=== PATIENT | female | born 1990 | race Caucasian/White ===

== ENCOUNTER 2017-03-24 07:34 | Emergency (ER) | payer MEDICAID, OTHER ==
[~2017-03-24] VITALS: Ht 170.2 cm; Wt 58.1 kg
[~2017-03-24 07:34] MED LIST: ALPR1TAB2 PO; CITA-73 PO; INSLANTI SC
[2017-03-24] MEDS ORDERED: SODIUM CHLORIDE 0.9% 1,000 ML IV ONE ×2 (08:07→08:15)
[2017-03-24] MEDS ORDERED: SODIUM CHLORIDE 0.9% 250 ML IV ONE (08:07)
[2017-03-24] MEDS ORDERED: KETOROLAC TROMETH 30 MG/ML 1ML VIAL IV ONE (08:15)
[2017-03-24] MEDS ORDERED: ONDANSETRON HCL 4 MG/2 ML VIAL IV ONE (08:15)
[2017-03-24 08:17] LABS: Basophils # (auto) 0 uL; Basophils % (auto) 0.4 % (0.0-2.0); Eosinophils # (auto) 0.2 uL; Eosinophils % (auto) 2.3 % (0.0-7.0); Hematocrit 43.4 % (36.0-46.0); Hemoglobin 14.8 g/dL (12.2-16.2); Lymphocytes # (auto) 3.3 uL; Lymphocytes % (auto) 31.1 % (10.0-50.0); Mean Corpuscular Hemoglobin 31.2 pg (28.0-32.0); Mean Corpuscular Hgb Conc. 34.2 g/dL (32.0-36.0); Mean Corpuscular Volume 91.4 fL (80.0-100.0); Mean Platelet Volume 10.3 fL (7.4-10.4); Monocytes # (auto) 0.7 uL; Monocytes % (auto) 6.9 % (0.0-12.0); Neutrophils # (auto) 6.3 uL; Neutrophils % (auto) 59.3 % (37.0-80.0); Platelet Count (auto) 206 10^3/uL (140-450); Red Cell Distribution Width 12.9 % (11.6-16.0); White Blood Cell 10.6 10^3/uL (4.4-10.8)
[2017-03-24 08:30] LABS: Urine Bilirubin Negative (Negative); Urine Color Yellow (Yellow); Urine Nitrite Negative (Negative); Urine RBC 6 /hpf (0 - 4); Urine Squamous Epithelial Cell FEW /hpf (<5); Urine Urobilinogen Normal (Negative); Urine pH 5.5 (5.0-8.0)
[2017-03-24 08:31] LABS: Urine Blood 1+ /uL (Negative); Urine Glucose 4+ mg/dL (Normal); Urine Ketone 3+ (Negative)
[2017-03-24 08:33] LABS: Albumin 4.1 g/dL (3.4-5.0); Bilirubin, Total 0.5 mg/dL (0.2-1.0); Total Protein 8.6 g/dL (6.4-8.2)
[2017-03-24 08:45] LABS: INR 1.05 (0.9-1.15); Partial Thromboplastin Time 27.5 sec (22.64-33.71); Prothrombin Time 11.3 sec (9.37-12.3)
[2017-03-24] MEDS ORDERED: LEVEMIR SC (09:00)
[2017-03-24] MEDS ORDERED: NALBUPHINE HCL 10 MG/1ml INJECTION IV ONE (09:30)
[2017-03-24] MEDS ORDERED: NITROFURANTOIN (MONO) 100 mg CAP PO ONE (09:45)
[2017-03-24] MEDS ORDERED: InsuLIN REG 1unit/0.01ml Soln (100units/ml) IV ONE (11:30)
[2017-03-24 11:56] VITALS: BP 106/68
[2017-03-24] MEDS ORDERED: HYDROmorphone HCL 2 MG/ML VL IV ONE (12:45)
== END 2017-03-24 13:29 | disposition home or self-care (01) ==
LOC: ER 07:34
DX: R10.13 Epigastric pain (principal); R19.7 Diarrhea, unspecified; K92.1 Melena; R11.2 Nausea with vomiting, unspecified; E10.8 Type 1 diabetes mellitus with unspecified complications; F17.210 Nicotine dependence, cigarettes, uncomplicated; F12.10 Cannabis abuse, uncomplicated; Z88.8 Allergy status to other drugs, medicaments and biological substances; Z88.6 Allergy status to analgesic agent
CPT/HCPCS: 36415; 71010; 74176; 80053; 80307; 81001; 81025; 82150; 82962; 83690; 83735; 84702; 85025; 85610; 85730; 96361; 96374; 96375; 99285; J1170; J1815; J1885; J2300; J2405; J7030